=== PATIENT | female | born 1965 | race Caucasian/White ===

== ENCOUNTER 2022-11-23 07:07 | Day surgery (SDC) | payer BC ==
[2022-11-21 14:58] VITALS: BMI 45.8
[2022-11-23] MEDS ORDERED: Lidocaine 1% PF 5 ML VIAL ONE (09:12)
[2022-11-23] MEDS ORDERED: PROPOFOL 200 MG/20 ML VIAL ONE (09:12)
== END 2022-11-23 10:30 | disposition home or self-care (01) ==
LOC: SDC 07:07
PROVIDERS: ATTEND Internal Medicine Gastroenterology
PROC: 0DJD8ZZ Inspection of Lower Intestinal Tract, Via Natural or Artificial Opening Endoscopic (ICD-10-PCS; principal; 2022-11-23)
DX: Z12.11 Encounter for screening for malignant neoplasm of colon (principal); K57.30 Diverticulosis of large intestine without perforation or abscess without bleeding; K64.8 Other hemorrhoids; I10 Essential (primary) hypertension; E78.5 Hyperlipidemia, unspecified; E66.01 Morbid (severe) obesity due to excess calories; Z68.42 Body mass index [BMI] 45.0-49.9, adult; Z79.899 Other long term (current) drug therapy
CPT/HCPCS: J2704

== ENCOUNTER 2022-12-29 15:22 | Observation (INO) | payer BC ==
[2022-12-29 16:23] LABS: #Basophils 0.1 thou/uL (0.0-0.2); #Lymphocytes 1.8 thou/uL (1.20-3.40); #Monocytes 0.3 thou/uL (0.11-0.59); #Neutrophils 4.4 thou/uL (1.40-6.50); %Eosinophils 0.4 % (0.0-10.0); %Lymphocytes 27.4 % (21.0-51.0); %Neutrophils 66.3 % (42.0-75.0); Hemoglobin 14.5 g/dL (12.0-16.0); Mean Corpuscular HGB CONC 33.5 g/dL (32.0-36.0); Mean Corpuscular Hemoglobin 31.4 pg (27.0-31.0); Mean Corpuscular Volume 93.8 fl (78.0-98.0); Mean Platelet Volume 7.1 fL (7.4-10.4); Platelet Count 276 10x3/uL (130-400); RBC Distribution Width 12.5 % (11.5-14.5); White Blood Cell (WBC) Count 6.6 10x3/uL (4.8-10.8)
[2022-12-29 16:40] LABS: Prothrombin Time 13.6 sec (12.0-14.7)
[2022-12-29 16:50] LABS: ALT (SGPT) 36 U/L (8-55); AST (SGOT) 33 U/L (5-34); Albumin 4.3 g/dL (3.5-5.0); Alkaline Phosphatase 52 U/L (40-110); Anion Gap 17 mmol/L (10-20); BUN (Urea Nitrogen) 30 mg/dL (9.8-20.1); Bilirubin, Total 0.7 mg/dL (0.2-1.2); Calc. Creatinine Clearance 0 mL/min (70-130); Calcium 9.5 mg/dL (7.8-10.44); Carbon Dioxide 23 mmol/L (22-29); Chloride 102 mmol/L (98-107); Estimated GFR 40; Glucose 153 mg/dL (70-105); Lipase 22 U/L (8-78); Potassium 4.2 mmol/L (3.5-5.1); Protein, Total 6.3 g/dL (6.0-8.3); Sodium 138 mmol/L (136-145)
[2022-12-29 16:55] LABS: PTT 22.4 sec (22.9-36.1)
[2022-12-29] MEDS ORDERED: Aspirin Chewable 81 MG TAB ONE (17:40)
[2022-12-29] MEDS ORDERED: hydrALAZINE 20 MG/ML VIAL SLOW IVP PRN (20:26)
[2022-12-29] MEDS ORDERED: Acetaminophen 325 MG TAB PO PRN (20:26)
[2022-12-29] MEDS ORDERED: Ondansetron PF 4 MG/2 ML Vial IVP PRN (20:26)
[2022-12-29] MEDS ORDERED: Ondansetron ODT 4 MG TAB PO PRN (20:26)
[2022-12-29 21:10] VITALS: BMI 43.8
[2022-12-29 23:39] LABS: Amphetamine Not Detected (NotDetected); Barbiturates Screen Not Detected (NotDetected); Benzodiazepine Screen Not Detected (NotDetected); Cocaine Metabolite Screen Not Detected (NotDetected); Methadone Not Detected (NotDetected); Methamphetamine Not Detected (NotDetected); Opiate Screen Not Detected (NotDetected); Oxycodone Screen Not Detected (NotDetected); Phencyclidine (PCP) Not Detected (NotDetected); THC/Cannabinoid Screen Detected (NotDetected); Tricyclic Screen Detected (NotDetected)
[2022-12-30 07:26] LABS: #Basophils 0.1 thou/uL (0.0-0.2); #Eosinphils 0.1 thou/uL (0.0-0.7); #Lymphocytes 3.5 thou/uL (1.20-3.40); #Monocytes 0.6 thou/uL (0.11-0.59); #Neutrophils 4.2 thou/uL (1.40-6.50); %Basophils 0.9 % (0.0-1.0); %Eosinophils 1.1 % (0.0-10.0); %Lymphocytes 41.4 % (21.0-51.0); %Monocytes 7.4 % (0.0-10.0); %Neutrophils 49.3 % (42.0-75.0); Hemoglobin 13.2 g/dL (12.0-16.0); Mean Corpuscular HGB CONC 34.1 g/dL (32.0-36.0); Mean Corpuscular Hemoglobin 32.1 pg (27.0-31.0); Mean Platelet Volume 7.2 fL (7.4-10.4); Platelet Count 254 10x3/uL (130-400); RBC Distribution Width 12.2 % (11.5-14.5); White Blood Cell (WBC) Count 8.5 10x3/uL (4.8-10.8)
[2022-12-30 07:49] LABS: Anion Gap 14 mmol/L (10-20); BUN (Urea Nitrogen) 23 mg/dL (9.8-20.1); Calc. Creatinine Clearance 145 mL/min (70-130); Calcium 9.4 mg/dL (7.8-10.44); Carbon Dioxide 25 mmol/L (22-29); Chloride 105 mmol/L (98-107); Cholesterol 173 mg/dl (< 200 Desired); Estimated GFR 74; Glucose 107 mg/dL (70-105); HDL Cholesterol 29 mg/dL (>60 Neg Risk); LDL Cholesterol, Calculated 78 mg/dL; Potassium 3.2 mmol/L (3.5-5.1); Sodium 141 mmol/L (136-145); Triglycerides 328 mg/dL (Less than 150)
[2022-12-30 07:50] LABS: Hemoglobin A1c 5.6 % (4.0-6.0)
[2022-12-30] MEDS ORDERED: Potassium Chloride 20 MEQ TAB PO SCH (08:30)
[2022-12-30] MEDS ORDERED: Aspirin 81 mg Enteric Coated Tablet PO SCH (09:00)
[2022-12-30] MEDS ORDERED: DULoxetine 30 MG CAP PO SCH (09:00)
[2022-12-30] MEDS ORDERED: Loratadine 10 MG TAB PO SCH (09:00)
[2022-12-30] MEDS ORDERED: Floranex 1 GM Packet PO SCH (09:00)
[2022-12-30] MEDS ORDERED: Non-Formulary Item 1 EACH (Fexofenadine Hcl [Allegra Allergy] 60 MG Tablet) PO SCH (09:00)
[2022-12-30] MEDS ORDERED: LAMOTRIGINE 300 MG PO SCH (09:00)
[2022-12-30] MEDS ORDERED: ALPRAZolam 0.5 MG TAB PO PRN (10:05)
[2022-12-30 12:06] VITALS: TEMP 98.6
[2022-12-30 16:08] VITALS: BP 101/56
[2022-12-30] MEDS ORDERED: Atorvastatin Calcium 40 MG TAB PO SCH (21:00)
== END 2022-12-30 16:45 | disposition home or self-care (01) ==
LOC: ERS 15:22 → NEURO 18:53
PROVIDERS: ADMIT Internal Medicine; ATTEND Internal Medicine
DX: R13.10 Dysphagia, unspecified (principal); R47.1 Dysarthria and anarthria; R20.2 Paresthesia of skin; E87.6 Hypokalemia; E78.1 Pure hyperglyceridemia; I10 Essential (primary) hypertension; I95.89 Other hypotension; J45.909 Unspecified asthma, uncomplicated; F12.10 Cannabis abuse, uncomplicated; E66.01 Morbid (severe) obesity due to excess calories; Z68.41 Body mass index [BMI] 40.0-44.9, adult; Z79.899 Other long term (current) drug therapy
CPT/HCPCS: 36415; 36416; 70450; 70496; 70498; 71045; 80048; 80053; 80061; 80306; 83036; 83690; 83735; 83880; 84443; 84484; 85025; 85610; 85730; 86850; 86900; 86901; 93005; 93306; G0378; U0003; U0005